=== PATIENT | male | born 1975 ===

== ENCOUNTER 2023-04-22 15:13 | Inpatient (IN) ==
[2023-04-22] MEDS ORDERED: Nicotine GUM 4MG FRUIT FLAVOR PO PRN (18:31)
[2023-04-22 19:10] LABS: ABS Basophils 0.1 10^3/uL (0.0-0.1); ABS Eosinophils 0.1 10^3/uL (0.0-0.5); ABS Lymphocytes 3.1 10^3/uL (1.0-4.8); ABS Monocytes 0.9 10^3/uL (0.0-1.1); ABS Neutrophils 11.1 10^3/uL (1.5-7.6); ABS Nucleated RBC 0.02 10^3/ul; Eosinophil % 0.9 %; Hematocrit 41.6 % (38-53); Hemoglobin 14.4 g/dL (13.2-16.3); Lymphocyte % 20.2 %; Mean Corpuscular Hemoglobin 29.3 pg (27-33); Mean Corpuscular Hgb Conc 34.7 g/dL (31-36); Mean Corpuscular Volume 84.4 fL (80-97); Mean Platelet Volume 6.5 fL (7.5-11.2); Nucleated Red Blood Cells % 0.1 /100 WBC (0.0-0.4); Platelet Count 329 10^3/uL (150-450); Red Blood Count 4.93 10^6/uL (4.06-5.63); White Blood Count 15.4 10^3/uL (3.6-10.2)
[2023-04-22 19:50] LABS: ALT 28 U/L (7-52); AST 26 U/L (13-39); Acetaminophen < 15 mcg/mL; Albumin 4.8 g/dL (3.2-5.2); Albumin/Globulin Ratio 2.7 (1-3); Alcohol, S < 13 mg/dL (<13); Alkaline Phosphatase 56 U/L (35-149); Anion Gap 6 mmol/L (2-16); Blood Urea Nitrogen 8 mg/dL (6-24); CO2 Carbon Dioxide 31 mmol/L (22-32); Calcium 9.9 mg/dL (8.6-10.3); Chloride 102 mmol/L (101-111); Creatinine, Serum 0.93 mg/dL (0.67-1.17); Globulin 1.8 g/dL (2-4); Glucose 81 mg/dL (70-100); Lithium 0.43 mmol/L (0.6-1.2); Potassium 3.9 mmol/L (3.5-5.0); Salicylate < 2.50 mg/dL (<30); Sodium 139 mmol/L (135-145); Total Protein 6.6 g/dL (6.4-8.9); eGFR CKD-EPI 103.2 (>60)
[2023-04-22] MEDS ORDERED: Al Hydrox/Mg Hydrox/Simet LIQ 30 ML UDC PO PRN (20:26)
[2023-04-22 21:36] LABS: TSH Ultra Thyroid Stim Horm 2.08 mcIU/mL (0.34-5.60)
[2023-04-22 21:47] LABS: Folate 15.63 ng/mL (5.90-24.80)
[2023-04-22 21:48] LABS: Vitamin B12 314 pg/mL (180-914)
[2023-04-22] MEDS: Nicotine PATCH 14 MG/24 HR PATCH TRANSDERM SCH (21:54)
[2023-04-22] MEDS: Nicotine GUM 4MG FRUIT FLAVOR PO PRN (22:51)
[2023-04-23] MEDS: Nicotine GUM 4MG FRUIT FLAVOR PO PRN ×5 (01:42→23:54)
[2023-04-23] MEDS: Nicotine PATCH 14 MG/24 HR PATCH TRANSDERM SCH (07:43)
[2023-04-23] MEDS: Multivitamins/Minerals TAB PO SCH (10:18)
[2023-04-23 12:03] LABS: HDL Cholesterol 65.4 mg/dL
[2023-04-24] MEDS: Nicotine PATCH 14 MG/24 HR PATCH TRANSDERM SCH (09:12)
[2023-04-24] MEDS: Nicotine GUM 4MG FRUIT FLAVOR PO PRN ×4 (09:14→22:06)
[2023-04-24] MEDS: Multivitamins/Minerals TAB PO SCH (09:14)
[2023-04-25] MEDS: Nicotine GUM 4MG FRUIT FLAVOR PO PRN ×5 (07:46→21:46)
[2023-04-25] MEDS: Nicotine PATCH 14 MG/24 HR PATCH TRANSDERM SCH (07:46)
[2023-04-25] MEDS: Multivitamins/Minerals TAB PO SCH (09:04)
[2023-04-26] MEDS: Nicotine PATCH 14 MG/24 HR PATCH TRANSDERM SCH (09:01)
[2023-04-26] MEDS: Multivitamins/Minerals TAB PO SCH (09:02)
[2023-04-26] MEDS: Nicotine GUM 4MG FRUIT FLAVOR PO PRN ×6 (09:06→22:44)
[2023-04-27] MEDS: Nicotine PATCH 14 MG/24 HR PATCH TRANSDERM SCH (09:31)
[2023-04-27] MEDS: Multivitamins/Minerals TAB PO SCH (09:31)
[2023-04-27] MEDS: Nicotine GUM 4MG FRUIT FLAVOR PO PRN ×4 (09:34→22:48)
[2023-04-28] MEDS: Nicotine GUM 4MG FRUIT FLAVOR PO PRN ×5 (07:34→23:10)
[2023-04-28] MEDS: Multivitamins/Minerals TAB PO SCH (09:04)
[2023-04-28] MEDS: Nicotine PATCH 14 MG/24 HR PATCH TRANSDERM SCH (09:04)
[2023-04-28] MEDS: Lithium Carbonate ER 450mg TAB PO SCH (20:17)
[2023-04-28] MEDS: Lithium Carb ER 300 mg TAB(NF) PO SCH (20:17)
[2023-04-29] MEDS: Nicotine PATCH 14 MG/24 HR PATCH TRANSDERM SCH (08:37)
[2023-04-29] MEDS: Multivitamins/Minerals TAB PO SCH (08:38)
[2023-04-29] MEDS: Nicotine GUM 4MG FRUIT FLAVOR PO PRN ×5 (08:41→22:55)
[2023-04-29] MEDS: Lithium Carbonate ER 450mg TAB PO SCH (20:46)
[2023-04-29] MEDS: Lithium Carb ER 300 mg TAB(NF) PO SCH (20:46)
[2023-04-30] MEDS: Nicotine PATCH 14 MG/24 HR PATCH TRANSDERM SCH (09:43)
[2023-04-30] MEDS: Multivitamins/Minerals TAB PO SCH (09:44)
[2023-04-30] MEDS: Nicotine GUM 4MG FRUIT FLAVOR PO PRN ×4 (09:46→21:03)
[2023-04-30] MEDS: Lithium Carbonate ER 450mg TAB PO SCH (20:59)
[2023-04-30] MEDS: Lithium Carb ER 300 mg TAB(NF) PO SCH (21:00)
[2023-05-01] MEDS: Multivitamins/Minerals TAB PO SCH (10:38)
[2023-05-01] MEDS: Nicotine PATCH 14 MG/24 HR PATCH TRANSDERM SCH (10:40)
[2023-05-01] MEDS: Nicotine GUM 4MG FRUIT FLAVOR PO PRN ×4 (10:45→21:04)
[2023-05-01] MEDS: Lithium Carb ER 300 mg TAB(NF) PO SCH (21:04)
[2023-05-01] MEDS: Lithium Carbonate ER 450mg TAB PO SCH (21:04)
[2023-05-02] MEDS: Multivitamins/Minerals TAB PO SCH (08:58)
[2023-05-02] MEDS: Nicotine PATCH 14 MG/24 HR PATCH TRANSDERM SCH (08:58)
[2023-05-02] MEDS: Nicotine GUM 4MG FRUIT FLAVOR PO PRN ×4 (09:01→22:36)
[2023-05-02] MEDS: Lithium Carbonate ER 450mg TAB PO SCH (20:22)
[2023-05-02] MEDS: Lithium Carb ER 300 mg TAB(NF) PO SCH (20:23)
[2023-05-03] MEDS: Multivitamins/Minerals TAB PO SCH (08:44)
[2023-05-03] MEDS: Nicotine GUM 4MG FRUIT FLAVOR PO PRN ×5 (08:45→20:33)
[2023-05-03] MEDS: Nicotine PATCH 14 MG/24 HR PATCH TRANSDERM SCH (08:45)
[2023-05-03] MEDS: Lithium Carbonate ER 450mg TAB PO SCH (20:30)
[2023-05-03] MEDS ORDERED: Lithium Carb ER 300 mg TAB(NF) PO SCH (21:00)
[2023-05-04] MEDS: Nicotine PATCH 14 MG/24 HR PATCH TRANSDERM SCH (09:14)
[2023-05-04] MEDS: Multivitamins/Minerals TAB PO SCH (09:14)
[2023-05-06 08:05] LABS: Amphetamines Screen Blood None Detected; Cocaine Metabolites Screen Bl None Detected; Fentanyl/Acetyl FentanylScreen None Detected; Methadone Metabolites Scrn Bl None Detected; Methamphetamines/MDMA Screen None Detected; Opiates Screen Blood None Detected; Oxycodone/Oxymorphone Scrn Bl None Detected; Phencyclidine Screen Blood None Detected
== END 2023-05-04 09:02 | disposition home or self-care (01) | DRG 753 ==
LOC: ED 15:13 → BSU 20:45
PROVIDERS: ADMIT Psychiatry & Neurology Psychiatry; ATTEND Student in an Organized Health Care Education/Training Program